=== PATIENT | female | born 1985 | race Caucasian/White ===

== ENCOUNTER → 2016-09-10 | Outpatient (REF) | payer BC ==
[~2016-09-10] MED LIST: ACET50TA PO; DOCU10CA PO; MOM30SS PO; MOTR200T44 PO
== END ==
LOC: M LAB REF 09:54
PROVIDERS: ATTEND Physician Assistant
DX: J02.9 Acute pharyngitis, unspecified (principal)

== ENCOUNTER → 2017-06-15 | Outpatient (CLI) | payer BC ==
[2017-06-15 18:29] LABS: BASO % 0.3 % (0.0-1.0); EOS # 0.4 10^3/uL (0.0-0.50); EOS % 3.6 % (0.0-3.0); HEMATOCRIT 35.5 % (36.0-47.0); IMMATURE GRANULOCYTE % 0.3 % (0-0); LYMPH # 2.4 10^3/uL (1.5-4.5); LYMPH % 23.9 % (24.0-44.0); MEAN CORPUSCULAR HEMOGLOBIN 29.2 pg (27.0-33.0); MEAN CORPUSCULAR HGB CONC 33.8 g/dl (32.0-36.5); MEAN CORPUSCULAR VOLUME 86.4 fl (80.0-96.0); MONO # 0.7 10^3/uL (0.0-0.8); NEUTROPHILS # 6.6 10^3/uL (1.8-7.7); NEUTROPHILS % 64.9 % (36.0-66.0); PLATELET COUNT, AUTOMATED 291 10^3/uL (150-450); RED BLOOD COUNT 4.11 10^6/uL (4.00-5.40); RED CELL DISTRIBUTION WIDTH 12.4 % (11.5-14.5)
[2017-06-15 21:18] LABS: GC DNA AMPLIFICATION NEGATIVE (NEGATIVE)
[2017-06-16 08:23] LABS: CHLAMYDIA DNA AMPLIFICATION NEGATIVE (NEGATIVE)
[2017-06-16 08:24] LABS: WHITE BLOOD COUNT 10.1 10^3/uL (4.0-10.0)
[2017-06-16 13:19] LABS: RUBELLA IgG QUALITATIVE IMMUNE (IMMUNE)
[2017-06-16 13:32] LABS: HBsAg Prenatal NEGATIVE (NEGATIVE)
[2017-06-16 13:50] LABS: HEPATITIS C VIRUS ABY INDEX 0.1 INDEX (<0.8)
[2017-06-16 13:50] LABS: HIV 1&2 SCREEN CENTAUR NEGATIVE (NEGATIVE)
== END ==
LOC: M SMT 13:11
DX: Z34.81 Encounter for supervision of other normal pregnancy, first trimester (principal); Z3A.11 11 weeks gestation of pregnancy
CPT/HCPCS: 86762

== ENCOUNTER → 2017-07-04 | Outpatient (CLI) | payer BC | LOC: M SMT 14:30 | DX: Z36.89 Encounter for other specified antenatal screening (principal); Z3A.18 18 weeks gestation of pregnancy | CPT/HCPCS: 76811 ==

== ENCOUNTER → 2017-08-09 | Outpatient (CLI) | payer BC | LOC: M SMT 12:51 | DX: Z34.82 Encounter for supervision of other normal pregnancy, second trimester (principal); Z3A.24 24 weeks gestation of pregnancy ==

== ENCOUNTER → 2017-09-21 | Outpatient (CLI) | payer BC ==
[2017-09-21 14:00] LABS: BASO % 0.3 % (0.0-1.0); EOS # 0.2 10^3/uL (0.0-0.50); EOS % 2.2 % (0.0-3.0); HEMATOCRIT 32.3 % (36.0-47.0); HEMOGLOBIN 10.6 g/dl (12.0-15.5); IMMATURE GRANULOCYTE % 0.7 % (0-3.0); LYMPH # 1.6 10^3/uL (1.5-4.5); LYMPH % 17.9 % (24.0-44.0); MEAN CORPUSCULAR HGB CONC 32.8 g/dl (32.0-36.5); MEAN CORPUSCULAR VOLUME 88.3 fl (80.0-96.0); MONO # 0.8 10^3/uL (0.0-0.8); MONO % 8.6 % (0.0-5.0); NEUTROPHILS # 6.4 10^3/uL (1.8-7.7); NEUTROPHILS % 70.3 % (36.0-66.0); PLATELET COUNT, AUTOMATED 312 10^3/uL (150-450); RED BLOOD COUNT 3.66 10^6/uL (4.00-5.40); RED CELL DISTRIBUTION WIDTH 12.7 % (11.5-14.5); WHITE BLOOD COUNT 9.2 10^3/uL (4.0-10.0)
[2017-09-21 14:20] LABS: GLUCOSE CHALLENGE TEST 1 HOUR 123 MG/DL (LESS THAN 140)
== END ==
LOC: M SMT 09:13
DX: Z34.82 Encounter for supervision of other normal pregnancy, second trimester (principal); Z3A.00 Weeks of gestation of pregnancy not specified

== ENCOUNTER → 2017-11-03 | Outpatient (REF) | payer BC | LOC: M LAB REF 17:07 | DX: Z34.83 Encounter for supervision of other normal pregnancy, third trimester (principal); Z3A.00 Weeks of gestation of pregnancy not specified | CPT/HCPCS: 87081 ==

== ENCOUNTER → 2017-11-24 | Outpatient (CLI) | payer BC ==
[2017-11-24 17:37] LABS: ALBUMIN 2.7 GM/DL (3.2-5.2); ALBUMIN/GLOBULIN RATIO 0.69 (1.00-1.93); ALKALINE PHOSPHATASE 184 U/L (45-117); ALT/SGPT 37 U/L (12-78); AST/SGOT 29 U/L (7-37); BILIRUBIN,DIRECT 0.1 MG/DL (0.0-0.2); BILIRUBIN,TOTAL 0.3 MG/DL (0.2-1.0); TOTAL PROTEIN 6.6 GM/DL (6.4-8.2)
== END ==
LOC: M SMT 13:14
DX: Z34.83 Encounter for supervision of other normal pregnancy, third trimester (principal)
CPT/HCPCS: 80076

== ENCOUNTER 2017-11-26 23:49 | Inpatient (IN) | payer BC ==
[2017-11-27] MEDS: LACTATED RINGER'S 1000 ML IV (00:58)
[2017-11-27 01:28] LABS: HEMATOCRIT 30.9 % (36.0-47.0); HEMOGLOBIN 9.9 g/dl (12.0-15.5); MEAN CORPUSCULAR HEMOGLOBIN 26.9 pg (27.0-33.0); PLATELET COUNT, AUTOMATED 276 10^3/uL (150-450); RED BLOOD COUNT 3.68 10^6/uL (4.00-5.40); RED CELL DISTRIBUTION WIDTH 12.7 % (11.5-14.5); WHITE BLOOD COUNT 11.7 10^3/uL (4.0-10.0)
[2017-11-27] MEDS ORDERED: OXYTOCIN 30 UNITS IN 0.9% NaCl 500ML IV BAG (J2590) As Ordered ×2 (03:34→23:22)
[2017-11-27] MEDS ORDERED: FENTANYL 2MCG/ML ROPIVACAINE 0.2% IN 0.9% NACL 200ML IVBAG As Ordered (03:35)
[2017-11-27] MEDS ORDERED: ePHEDrine SULFATE 25 MG/5 ML(5MG/ML) SYRINGE As Ordered (04:50)
[2017-11-27] MEDS ORDERED: REFRIGERATOR IV KEYS XX (05:00)
[2017-11-27] MEDS ORDERED: EPIDURAL/PCA KEYS XX (05:00)
[2017-11-27] MEDS ORDERED: ePHEDrine SULFATE 25 MG/5 ML(5MG/ML) SYRINGE IV (05:00)
[2017-11-27] MEDS ORDERED: LACTATED RINGER'S 1000 ML IV (05:00)
[2017-11-27] MEDS ORDERED: diphenhydrAMINE INJ 50MG/ML VIAL (J1200) IV (05:00)
[2017-11-27] MEDS ORDERED: FENTANYL/ROPIVACAINE/NACL BAG 200 ML EPIDURAL (05:00)
[2017-11-27] MEDS ORDERED: NALOXONE INJ 0.4 MG/1 ML VIAL (J2310) IV (05:00)
[2017-11-27] MEDS ORDERED: ONDANSETRON 4MG/2ML VIAL (J2405) IV (05:00)
[2017-11-27] MEDS ORDERED: EPIDURAL COMMENT XX (05:00)
[2017-11-27 08:49] LABS: CORD GAS ABE A -5.8; CORD GAS HCO3 A 23.6 MEQ/L; CORD GAS O2 SAT A 34.8 %; CORD GAS PCO2 A 62.4 mmHg; CORD GAS PH A 7.195 UNITS; CORD GAS PO2 A 18.2 mmHg; CORD GAS SBC A 18.3 MEQ/L; CORD GAS TCO2 A 25.5 MEQ/L
[2017-11-27 08:51] LABS: CORD GAS ABE V -4.9; CORD GAS HCO3 V 20.7 MEQ/L; CORD GAS O2 SAT V 82.8 %; CORD GAS PCO2 V 40.5 mmHg; CORD GAS PH V 7.326 UNITS; CORD GAS PO2 V 36.9 mmHg; CORD GAS SBC V 20.1 MEQ/L; CORD GAS TCO2 V 21.9 MEQ/L
[2017-11-27] MEDS: PRENATAL VITAMINS CHEWABLE TABLET PO (09:00)
[2017-11-27] MEDS ORDERED: DOCUSATE SODIUM 100 MG CAP PO (09:30)
[2017-11-27] MEDS ORDERED: ANUSOL HC CREAM 30GM TOP (09:30)
[2017-11-27] MEDS ORDERED: MOM 30ML SUSPENSION UDC PO (09:30)
[2017-11-27] MEDS ORDERED: DIBUCAINE 1% OINTMENT 30GM TOP (09:30)
[2017-11-27] MEDS: OXYTOCIN DRIP 30 UNITS in APPROPRIATE DILUENT 1 EA IV (09:38)
[2017-11-27] MEDS: IBUPROFEN 800 MG TAB PO ×2 (11:08→19:28)
[2017-11-27] MEDS: ACETAMINOPHEN 500 MG TAB PO ×2 (16:35→22:22)
[2017-11-27] MEDS: METHYLERGONOVINE MALEATE 0.2 MG TAB PO (22:57)
[2017-11-27] MEDS ORDERED: MORPHINE 4 MG/ML 1ML VIAL/SYRINGE (J2270) As Ordered (23:29)
[2017-11-27] MEDS: MORPHINE 4 MG/ML 1ML VIAL/SYRINGE (J2270) IV (23:41)
[2017-11-28 00:17] LABS: HEMATOCRIT 21.3 % (36.0-47.0); MEAN CORPUSCULAR HEMOGLOBIN 27.1 pg (27.0-33.0); MEAN CORPUSCULAR HGB CONC 31.9 g/dl (32.0-36.5); MEAN CORPUSCULAR VOLUME 84.9 fl (80.0-96.0); PLATELET COUNT, AUTOMATED 219 10^3/uL (150-450); RED BLOOD COUNT 2.51 10^6/uL (4.00-5.40); WHITE BLOOD COUNT 12.3 10^3/uL (4.0-10.0)
[2017-11-28 00:20] LABS: HEMOGLOBIN 6.8 g/dl (12.0-15.5)
[2017-11-28] MEDS: ACETAMINOPHEN TAB 650MG DOSE (2X325MG) PO (01:25)
[2017-11-28] MEDS: diphenhydrAMINE 25 MG CAP PO (01:25)
[2017-11-28 03:21] LABS: IMMEDIATE SPIN CROSSMATCH 1 2
[2017-11-28] MEDS: METHYLERGONOVINE MALEATE 0.2 MG TAB PO ×4 (05:13→22:57)
[2017-11-28] MEDS: IBUPROFEN 800 MG TAB PO ×2 (06:19→14:21)
[2017-11-28] MEDS: ACETAMINOPHEN 500 MG TAB PO ×3 (08:04→20:13)
[2017-11-28] MEDS: PRENATAL VITAMINS CHEWABLE TABLET PO (08:04)
[2017-11-28 08:11] LABS: MEAN CORPUSCULAR HEMOGLOBIN 28.1 pg (27.0-33.0); MEAN CORPUSCULAR HGB CONC 33.2 g/dl (32.0-36.5); MEAN CORPUSCULAR VOLUME 84.6 fl (80.0-96.0); PLATELET COUNT, AUTOMATED 194 10^3/uL (150-450); RED BLOOD COUNT 3.31 10^6/uL (4.00-5.40); RED CELL DISTRIBUTION WIDTH 13.4 % (11.5-14.5); WHITE BLOOD COUNT 13.6 10^3/uL (4.0-10.0)
[2017-11-28 08:15] LABS: HEMOGLOBIN 9.3 g/dl (12.0-15.5)
[2017-11-28] MEDS ORDERED: OXYTOCIN 30 UNITS IN 0.9% NaCl 500ML IV BAG (J2590) As Ordered (20:43)
[2017-11-29] MEDS: IBUPROFEN 800 MG TAB PO ×2 (01:09→11:07)
[2017-11-29] MEDS: RHOGAM 300 MCG (1500 IU) INJ (J2790) IM (03:28)
[2017-11-29] MEDS: MEASLES,MUMPS,RUBELLA VACCINE INJ (MMR-II) (90707) SC (03:29)
[2017-11-29] MEDS: METHYLERGONOVINE MALEATE 0.2 MG TAB PO ×2 (05:11→11:06)
[2017-11-29] MEDS: ACETAMINOPHEN 500 MG TAB PO (05:11)
[2017-11-29] MEDS: PRENATAL VITAMINS CHEWABLE TABLET PO (08:01)
== END 2017-11-29 13:30 | disposition home or self-care (01) | DRG 560 ==
LOC: M LDO 23:49 → M LDI 11-27 00:57 → M OBS 11-27 10:18
PROVIDERS: Advanced Practice Midwife
PROC: 10E0XZZ Delivery of Products of Conception, External Approach (ICD-10-PCS; principal; 2017-11-27)
PROC: 10907ZC Drainage of Amniotic Fluid, Therapeutic from Products of Conception, Via Natural or Artificial Opening (ICD-10-PCS; 2017-11-27)
PROC: 30233N1 Transfusion of Nonautologous Red Blood Cells into Peripheral Vein, Percutaneous Approach (ICD-10-PCS; 2017-11-28)
DX: O66.0 Obstructed labor due to shoulder dystocia (principal); O72.1 Other immediate postpartum hemorrhage; Z88.0 Allergy status to penicillin; Z37.0 Single live birth; Z3A.39 39 weeks gestation of pregnancy

== ENCOUNTER → 2024-04-19 | Outpatient (REF) | payer BC ==
[~2024-04-19] MED LIST changes: -ACET50TA PO; +MAPA500T2 PO; +PRENTAB77 PO; +ZYRTTAB8 PO
== END ==
LOC: M SFHCWAGY 13:26
PROVIDERS: ATTEND Advanced Practice Midwife
DX: Z12.4 Encounter for screening for malignant neoplasm of cervix (principal)

== ENCOUNTER → 2024-10-08 | Outpatient (CLI) | payer BC | LOC: M RAD 14:40 | PROVIDERS: ATTEND Nurse Practitioner Family | DX: J34.89 Other specified disorders of nose and nasal sinuses (principal) ==

== ENCOUNTER → 2025-05-21 | Outpatient (REF) | payer BC ==
[2025-05-27 11:42] LABS: HPV APTIMA Not Detected (Not Detected)
== END ==
LOC: M SFHCWAGY 12:55
PROVIDERS: ATTEND Physician Assistant
DX: Z01.419 Encounter for gynecological examination (general) (routine) without abnormal findings (principal)
CPT/HCPCS: 87624; G0123